=== PATIENT | male | born 1955 | race Caucasian/White ===

== ENCOUNTER 2019-01-10 11:49 | Observation (INO) | payer MEDICARE ==
[~2019-01-10] VITALS: Ht 180.3 cm; Wt 111.0 kg
[~2019-01-10 11:49] MED LIST: ATOR20 PO; CLOP75 PO; FENO160 PO; FENO48 PO; Flomax0.4 MG PO; GLIP10 PO; INSDET100 SC; INSULANPEN; LIRA0.6P SC; LISINOPRIL (ZESTRIL) PO; LO-DOSE ASPIRIN81 MG PO; METF500 PO; Norco 5-325 Ta1 EACH PO; OXYACE5T PO; TAMS.4ER PO
[2019-01-10 12:34] LABS: BASOPHILS PERCENT AUTO 1 % (0-2); EOSINOPHILS ABSOLUTE AUTO 0.88 K/mm3 (0.00-0.68); EOSINOPHILS PERCENT AUTO 11 % (0-6); Hematocrit 44.6 % (37.0-53.0); Hemoglobin 14.1 g/dL (13.5-17.5); IMMATURE GRAN ABSOLUTE AUTO 0.02 K/mm3 (0.00-0.10); IMMATURE GRAN PERCENT AUTO 0 % (0-1); LYMPHOCYTES ABSOLUTE AUTO 2.36 K/mm3 (0.84-5.20); LYMPHOCYTES PERCENT AUTO 30 % (21-46); MONOCYTES ABSOLUTE AUTO 0.65 K/mm3 (0.16-1.47); MONOCYTES PERCENT AUTO 8 % (4-13); Mean Corpuscular HGB 28.8 pg (26.0-34.0); Mean Corpuscular HGB Conc 31.6 g/dL (31.5-36.5); Mean Corpuscular Volume 91 fL (80-100); NEUTROPHILS PERCENT AUTO 49 % (41-73); Platelet Count 239 K/mm3 (150-400); RDW Coefficient Variation 13.3 % (11.7-14.2); RDW Standard Deviation 44.8 fL (35.1-46.3); White Blood Cell Count 7.91 K/mm3 (4.00-11.30)
[2019-01-10 13:06] LABS: Alanine Aminotransfer (ALT/SGP 27 U/L (12-78); Albumin, Blood 4.1 g/dL (3.4-5.0); Albumin/Globulin Ratio 1.1 (0.8-1.8); Alk Phos 32 U/L (50-136); Anion Gap 6 mmol/L (6-16); Aspartate Aminotrans (AST/SGOT 18 U/L (12-37); Bilirubin, Total 0.8 mg/dL (0.1-1.0); Blood Urea Nitrogen 19 mg/dL (8-24); Bun/Creatinine Ratio 18.3 (12.0-20.0); CO2, Blood 25 mmol/L (21-32); Calcium, Blood 9.4 mg/dL (8.5-10.1); Chloride, Blood 110 mmol/L (98-108); Creatinine, Blood 1.04 mg/dL (0.60-1.20); Globulin, Blood 3.9 g/dL (2.2-4.0); Glomerular Filtration Rate >60 (60-); Glucose, Blood 85 mg/dL (70-99); Potassium, Blood 4.3 mmol/L (3.5-5.5); Sodium, Blood 141 mmol/L (136-145); Troponin I <0.015 ng/mL (0.000-0.040)
[2019-01-10] MEDS ORDERED: LOSA25 PO (15:49)
[2019-01-10] MEDS ORDERED: TAMS.4ER PO (15:50)
[2019-01-10] MEDS ORDERED: THERA1 EACH PO (15:50)
[2019-01-10] MEDS ORDERED: INVOKANA300 MG PO (15:50)
[2019-01-10] MEDS ORDERED: Vitamin D2000 UNIT PO (15:51)
[2019-01-10] MEDS ORDERED: UBID10 (15:51)
--- NOTE | 2019-01-10 21:58 | NUR ---
Assumed care of pt at approx 1900, pt transported from ED to PCU 10 via [facility] with ED RN at bedside. VSS. Pt in no apparent sign of distress. Pt denies chest pain, pressure, nor SOB. Pt able to transfer self from gurney to bed. Pt ambulated to bathroom to void without assistance. Steady gait. Pt denies fatigue, MEDINA, nor changes from baseline with ambulation. No marked changes on tele with ambulation. Pt educated on fall prevention, instructed to call this RN before getting out of bed. Pt verbally agreed and has been using call light appropriately. Non-skid sock in place. See admission assessment for detailed assessment. Pt has been NPO since 1999. Will continue to monitor.
[2019-01-11 05:32] LABS: CHOL/HDL RATIO 3.3; Cholesterol 107 mg/dL (50-200); HDL Cholesterol 32 mg/dL (>39); LDL/HDL RATIO 1.8; Low Density Lipoprotein Chol 56 mg/dL (0-110); Triglycerides 93 mg/dL (30-160); Troponin I <0.015 ng/mL (0.000-0.040); Very Low Density Lipoprot Chol 18 mg/dL (6-32)
--- NOTE | 2019-01-11 06:13 | NUR ---
Shift Summary Pt with uneventful night. Slept on and off throughout the shift, VSS, no apparent sign of distress. Pt denies chest pain or pressure. Pt denies SOB. Pt denies any breathing or cardiac changes with ambulation. pt ind in room, uses urinal at bedside. No events on tele, pt presents with asymptomatic bradycardia. Pt remains alert and oriented, no changes from initial shift assessment. Call light in reach, uses call light appropriately. Pt has been NPO since 1999 for cardiac risk panal and possible angio today. Cardiology consulted. Will continue to monitor.
--- NOTE | 2019-01-11 11:07 | NUR ---
PT OFF FLOOR TO [facility]
--- NOTE | 2019-01-11 13:08 | NUR ---
PT IS RESTING COMFORTABLY VITAL SIGNS STABLE CHARTED. DENIES ANY PAIN OR DISCOMFORT. SITTING WITH HOB AT 45 DEGREES. WILL CONTINUE TO MONITOR THIS PATIENT CLOSELY.
--- NOTE | 2019-01-11 17:28 | NUR ---
END OF SHIFT; NO DC ORDERS RECEIVED FROM PRIOR TO 5 PM. THIS RN CALLS HANG ZAPATA TO SEE IF HE WILL WRITE ORDERS. NO ANSWER, HAS SIGNED OFF AND VERBAL ORDERS NO NEW MEDICATIONS FROM CARDIOLOGY AND SEE HER FIRST WEEK IN JANUARY. PT FRUSTRATED AND WANTING TO GO HOME. WILL CONTINUE TO TRY AND CALL JONA MAURICIO. TR BAND IS DEFLATED AND NO BLEEDING NOTED. NO HEMATOMA. PER PLATING TANK OPERATOR NO INTERVENTIONS. PT WAS HEPARINIZED BECAUSE IFR WAS DONE. PT REMAINS ON 75ML NS AN HOUR PER ORDER. WILL CONTINUE TO MONITOR.
== END 2019-01-11 18:43 | disposition home or self-care (01) ==
LOC: ER 11:49 → PCU 11:50
PROVIDERS: Emergency Medicine; ADMIT Internal Medicine
DX: I25.110 Atherosclerotic heart disease of native coronary artery with unstable angina pectoris (principal); I12.9 Hypertensive chronic kidney disease with stage 1 through stage 4 chronic kidney disease, or unspecified chronic kidney disease; E11.22 Type 2 diabetes mellitus with diabetic chronic kidney disease; N18.9 Chronic kidney disease, unspecified; I71.4 Abdominal aortic aneurysm, without rupture; I25.2 Old myocardial infarction; G47.33 Obstructive sleep apnea (adult) (pediatric); E78.5 Hyperlipidemia, unspecified; M54.5 Low back pain; G89.29 Other chronic pain; E66.9 Obesity, unspecified; Z95.1 Presence of aortocoronary bypass graft; Z99.89 Dependence on other enabling machines and devices; Z87.442 Personal history of urinary calculi; Z88.8 Allergy status to other drugs, medicaments and biological substances; Z79.899 Other long term (current) drug therapy; Z79.82 Long term (current) use of aspirin; Z79.01 Long term (current) use of anticoagulants
CPT/HCPCS: 36415; 71046; 80053; 80061; 82947; 84484; 85025; 93005; 93010; 93308; 93321; 93454; 93571; 93572; 94762; 96372; 99152; 99153; 99285-25; C1769; C1887; C1894; G0378; J1644; J1650; J2250; J3010; J7030; Q9967

== ENCOUNTER 2019-06-16 16:02 | Inpatient (IN) | payer MEDICARE ==
[~2019-06-16] VITALS: Ht 180.3 cm; Wt 115.4 kg
[~2019-06-16 16:02] MED LIST changes: +ATOR10 PO; -ATOR20 PO; +CO Q-10 PO; +INVOKANA300 MG PO; +LOSA25 PO; +THERA1 EACH PO; +Vitamin D2000 UNIT PO
[2019-06-16 16:40] LABS: BASOPHILS ABSOLUTE AUTO 0.05 K/mm3 (0.00-0.23); BASOPHILS PERCENT AUTO 0 % (0-2); EOSINOPHILS ABSOLUTE AUTO 0.01 K/mm3 (0.00-0.68); EOSINOPHILS PERCENT AUTO 0 % (0-6); Hematocrit 47.8 % (37.0-53.0); Hemoglobin 15.6 g/dL (13.5-17.5); IMMATURE GRAN ABSOLUTE AUTO 0.05 K/mm3 (0.00-0.10); IMMATURE GRAN PERCENT AUTO 0 % (0-1); LYMPHOCYTES ABSOLUTE AUTO 1.11 K/mm3 (0.84-5.20); LYMPHOCYTES PERCENT AUTO 9 % (21-46); MONOCYTES ABSOLUTE AUTO 0.38 K/mm3 (0.16-1.47); MONOCYTES PERCENT AUTO 3 % (4-13); Mean Corpuscular HGB 29.1 pg (26.0-34.0); Mean Corpuscular HGB Conc 32.6 g/dL (31.5-36.5); Mean Corpuscular Volume 89 fL (80-100); NEUTROPHILS ABSOLUTE AUTO 10.39 K/mm3 (1.96-9.15); NEUTROPHILS PERCENT AUTO 87 % (41-73); Platelet Count 247 K/mm3 (150-400); RDW Coefficient Variation 13.2 % (11.7-14.2); RDW Standard Deviation 43.1 fL (35.1-46.3); Red Blood Cell Count 5.37 M/mm3 (4.30-5.90); White Blood Cell Count 11.99 K/mm3 (4.00-11.30)
[2019-06-16 17:02] LABS: Alanine Aminotransfer (ALT/SGP 25 U/L (12-78); Albumin, Blood 4.3 g/dL (3.4-5.0); Albumin/Globulin Ratio 1.1 (0.8-1.8); Alk Phos 34 U/L (50-136); Anion Gap 11 mmol/L (6-16); Aspartate Aminotrans (AST/SGOT 17 U/L (12-37); Bilirubin, Total 0.9 mg/dL (0.1-1.0); Blood Urea Nitrogen 23 mg/dL (8-24); Bun/Creatinine Ratio 21.5 (12.0-20.0); CO2, Blood 23 mmol/L (21-32); Calcium, Blood 9.6 mg/dL (8.5-10.1); Chloride, Blood 108 mmol/L (98-108); Creatinine, Blood 1.07 mg/dL (0.60-1.20); Glomerular Filtration Rate >60 (60-); Glucose, Blood 133 mg/dL (70-99); Sodium, Blood 142 mmol/L (136-145); Total Protein, Blood 8.3 g/dL (6.4-8.2); Troponin I <0.015 ng/mL (0.000-0.040)
[2019-06-16 18:10] LABS: Source, Urine Clean Catch
[2019-06-16 18:20] LABS: Bilirubin, Urine Neg (Neg); Blood, Urine 1+ (Neg); Glucose Qualitative, Urine 4+ (Neg); Ketones, Urine 2+ (Neg); Leukocyte Esterase, Urine Neg (Neg); Nitrite, Urine Neg (Neg); Protein, Urine 1+ (Neg); Specific Gravity, Urine 1.015 (1.003-1.022); Urobilinogen, Urine NORM (Normal)
[2019-06-16 18:34] LABS: Base Excess Venous -2.3 mmol/L; PCO2 Venous 35.6 mmHg (38-42); PO2 Venous 192 mmHg (38-42); pH Blood Venous 7.41 (7.34-7.37)
[2019-06-16 18:40] LABS: Appearance, Urine Clear (Clear); Color, Urine Yellow (P-Yellow)
[2019-06-16 18:42] LABS: Bacteria Few /hpf; Red Blood Cells, Urine 0-2 /hpf (0-2); Squamous Epithelial Cells Rare /hpf (Few); White Blood Cells, Urine 0-2 /hpf (0-5)
[2019-06-17 05:11] LABS: Hematocrit 43.3 % (37.0-53.0); Hemoglobin 13.9 g/dL (13.5-17.5); Mean Corpuscular HGB 29.1 pg (26.0-34.0); Mean Corpuscular HGB Conc 32.1 g/dL (31.5-36.5); Mean Corpuscular Volume 91 fL (80-100); Mean Platelet Volume 11.3 fL (9.1-12.4); Platelet Count 206 K/mm3 (150-400); RDW Coefficient Variation 13.3 % (11.7-14.2); RDW Standard Deviation 44.2 fL (35.1-46.3); Red Blood Cell Count 4.77 M/mm3 (4.30-5.90); White Blood Cell Count 14.71 K/mm3 (4.00-11.30)
[2019-06-17 05:40] LABS: Alanine Aminotransfer (ALT/SGP 19 U/L (12-78); Albumin, Blood 3.6 g/dL (3.4-5.0); Albumin/Globulin Ratio 1.1 (0.8-1.8); Alk Phos 28 U/L (50-136); Anion Gap 8 mmol/L (6-16); Aspartate Aminotrans (AST/SGOT 14 U/L (12-37); Bilirubin, Total 0.9 mg/dL (0.1-1.0); Blood Urea Nitrogen 20 mg/dL (8-24); CHOL/HDL RATIO 3.2; CO2, Blood 26 mmol/L (21-32); Calcium, Blood 8.7 mg/dL (8.5-10.1); Chloride, Blood 110 mmol/L (98-108); Cholesterol 117 mg/dL (50-200); Creatinine, Blood 1.05 mg/dL (0.60-1.20); Globulin, Blood 3.4 g/dL (2.2-4.0); Glomerular Filtration Rate >60 (60-); Glucose, Blood 111 mg/dL (70-99); HDL Cholesterol 36 mg/dL (>39); LDL/HDL RATIO 1.8; Low Density Lipoprotein Chol 66 mg/dL (0-110); Magnesium, Blood 1.6 mg/dL (1.6-2.4); Potassium, Blood 4.1 mmol/L (3.5-5.5); Sodium, Blood 144 mmol/L (136-145); Triglycerides 73 mg/dL (30-160); Very Low Density Lipoprot Chol 14 mg/dL (6-32)
--- NOTE | 2019-06-17 07:53 | NUR ---
STRIP TANK TENDER SUMMARY Very painful upon waking throughout the night. zofran given twice in addition to q4 hour doses of morphine. abdomen tender to light palpation, no distention noted. OOB to bathroom with minimal standby for IV pole and oxygen. Patient stated he was scheduled for a left knee replacement next Thursday in [place].
--- NOTE | 2019-06-17 16:09 | NUR ---
SHIFT SUMMARY NO ACUTE CHANGES. PATIENT MEDICATED X3 FOR PAIN THIS SHIFT. DENIES SHORTNESS OF BREATH AND NAUSEA. PATIENT UP SBA FOR LINE MANAGEMENT. PATIENT HAD MRI OF ABDOMEN TODAY. PATIENT REMAINS NPO. AT BEDSIDE. CALL LIGHT IN REACH.
--- NOTE | 2019-06-18 00:58 | NUR ---
BEGINNING SHIFT SUMMARY ASSUMED CARE OF PT AT 1900. PT LYING IN BED WATCHING TV. PT IS ALERT AND ORIENTED, CALLS APPROPIATLY. PT REPORTS HAVING PAIN IN HIS ABDOMEN AND REQUESTED PAIN MEDICATION SOON HE COULD HAVE IT. HEART SOUNDS REGULAR, PERIPHERAL PULSES STRONG, IV IN R AC INFUSING D5W1/2NS KCL 20MEQ @ 100ML/HR. LUNG SOUNDS CLEAR, DENIES SOB, PT HAS NASAL CANNULA IN NOSE BUT NO O2 ON, WHEN PT NOTIFIED PT SAID HE WAS ON 4 LITERS AND STILL WATED IT ON, PT IS NOW ON 2 L PER REQUEST. CALL LIGHT IN REACH, BED IN LOWEST POSTION, WILL CONTINUE TO MONITOR.
[2019-06-18 05:06] LABS: BASOPHILS ABSOLUTE AUTO 0.06 K/mm3 (0.00-0.23); BASOPHILS PERCENT AUTO 0 % (0-2); EOSINOPHILS ABSOLUTE AUTO 0.07 K/mm3 (0.00-0.68); EOSINOPHILS PERCENT AUTO 0 % (0-6); Hematocrit 42.3 % (37.0-53.0); Hemoglobin 13.3 g/dL (13.5-17.5); IMMATURE GRAN PERCENT AUTO 1 % (0-1); LYMPHOCYTES PERCENT AUTO 9 % (21-46); MONOCYTES ABSOLUTE AUTO 1.44 K/mm3 (0.16-1.47); MONOCYTES PERCENT AUTO 9 % (4-13); Mean Corpuscular HGB 29.3 pg (26.0-34.0); Mean Corpuscular HGB Conc 31.4 g/dL (31.5-36.5); Mean Corpuscular Volume 93 fL (80-100); Mean Platelet Volume 11.2 fL (9.1-12.4); NEUTROPHILS ABSOLUTE AUTO 12.64 K/mm3 (1.96-9.15); NEUTROPHILS PERCENT AUTO 81 % (41-73); Platelet Count 184 K/mm3 (150-400); RDW Coefficient Variation 13.7 % (11.7-14.2); RDW Standard Deviation 46.5 fL (35.1-46.3); Red Blood Cell Count 4.54 M/mm3 (4.30-5.90); White Blood Cell Count 15.71 K/mm3 (4.00-11.30)
[2019-06-18 05:39] LABS: Alanine Aminotransfer (ALT/SGP 18 U/L (12-78); Albumin, Blood 3.2 g/dL (3.4-5.0); Albumin/Globulin Ratio 0.8 (0.8-1.8); Alk Phos 28 U/L (50-136); Anion Gap 6 mmol/L (6-16); Aspartate Aminotrans (AST/SGOT 14 U/L (12-37); Blood Urea Nitrogen 18 mg/dL (8-24); Bun/Creatinine Ratio 19.2 (12.0-20.0); CHOL/HDL RATIO 2.5; CO2, Blood 27 mmol/L (21-32); Calcium, Blood 8.8 mg/dL (8.5-10.1); Chloride, Blood 110 mmol/L (98-108); Cholesterol 94 mg/dL (50-200); Creatinine, Blood 0.94 mg/dL (0.60-1.20); Globulin, Blood 3.8 g/dL (2.2-4.0); Glomerular Filtration Rate >60 (60-); Glucose, Blood 135 mg/dL (70-99); HDL Cholesterol 37 mg/dL (>39); LDL/HDL RATIO 1.1; Low Density Lipoprotein Chol 40 mg/dL (0-110); Potassium, Blood 4.3 mmol/L (3.5-5.5); Sodium, Blood 143 mmol/L (136-145); Triglycerides 83 mg/dL (30-160); Very Low Density Lipoprot Chol 16 mg/dL (6-32)
--- NOTE | 2019-06-18 05:45 | NUR ---
END SHIFT SUMMARY NO ACUTE CHANGES NOTED THROUGHOUT THE SHIFT. PT ASKED FOR PAIN MEDICATIONS EVERY 4 HRS TILL 0200, THEN THE PT SLEPT THE REST OF THE SHIFT. PT IS STILL ON 2 LITERS PER REQUEST. PT WALKED TO THE BATHROOM SEVERAL TIMES DURING THE NIGHT. CALL LIGHT IN REACH, BED IN LOWEST POSITION, WILL CONTINUE TO MONITOR UNTIL DAYSHIFT NURSE ARRIVES.
--- NOTE | 2019-06-18 16:32 | NUR ---
SHIFT SUMMARY PT ADMITTED FOR PANCREATITIS, UNKNOWN ORIGIN. DR TEJEDA IN TO SEE PT THIS AM. GI CONSULT ORDERED, BUT GASTRO UNAVAILABLE UNTIL NEXT , DR TEJEDA INFORMED. IVF'S INFUSING, NEW ORDERS FOR IV ABX; INFUSED PER EMAR. PT HAS BEEN SLEEPING OFF AND ON ALL SHIFT. GETS UP TO CHAIR INDEPENDENTLY AND BACK TO BED. NPO EXCEPT FOR MEDS AND ICE. HAS CALLED FOR PAIN MEDICATIONS OCCASSIONALLY THRU OUT THE SHIFT; PT IS USUALLY ASLEEP WHEN CHECKED ON. DOES NOT APPEAR TO BE IN PAIN WHEN CALLING. IN TO SEE PT THIS AM. NO FURTHER CHANGES TO PRESENT. CALL LT IN REACH.
--- NOTE | 2019-06-18 23:04 | NUR ---
BEGINNING SHIFT SUMMARY ASSUMED CARE OF PT AT 1900. PT WAS LYING IN BED WITH SPOUSE AT HIS SIDE WATCHING TV. PT IS ALERT AND ORIENTED. PT C/O EPIGASTRIC PAIN, MEDICATED PER EMAR. PT C/O NOT BEING ABLE TO SLEEP, CALLED HOSPITALIST WHO ORDERED ONE TIME DOSE OF MELETONIN. HEART SOUNDS REGULAR, PERIPHERAL PULSES STRONG, IV IN R AC, INFUSING NS WITH KCL @ 100ML/HR. LUNG SOUNDS CLEAR, DENIES SOB/DYSPNEA. BOWEL TONES HYPOACTIVE, ABDOMEN TENDER IN THE MIDEPIGASTRIC AREA, MILDLY DISTENDED, DENIES NEASEA, STIL NPO STATUS EXCEPT ICE CHIPS. PT IS CURRENTLY SLEEPING. CALL LIGHT IN REACH, BED IN LOWEST POSITION, WILL CONTINUE TO MONITOR.
--- NOTE | 2019-06-18 23:58 | NUR ---
HOSPITALIST DR BETANCOURT ORDERED MELATONIN 3 MG X ONE FOR INSOMNIA. AND CHANGED IV DILAUDID 1-2 MG IV Q4 PRN TO IV 0.5 MG Q4 PRN.
--- NOTE | 2019-06-19 05:24 | NUR ---
END SHIFT SUMMARY NO AUTE CHANGES NOTED THROUGHOUT THE NIGHT. PT ASKED FOR PAIN MEDICATION 3X THROUGHOUT THE SHIFT, C/O PAIN IN HIS EPIGASTRIC REGION. PT STATES THAT HE IS FEELING BETTER TONIGHT. PT WAS ABLE TO SLEEP MOST OF THE NIGHT. ABX RUNNING IN IV NOW. CALL LIGHT IN REACH, BED IN LOWEST POSITION, WILL CONTINUE TO MONITOR UNTIL DAYSHIFT NURSE ARRIVES.
[2019-06-19 05:42] LABS: BASOPHILS ABSOLUTE AUTO 0.04 K/mm3 (0.00-0.23); BASOPHILS PERCENT AUTO 0 % (0-2); EOSINOPHILS PERCENT AUTO 1 % (0-6); Hematocrit 39.5 % (37.0-53.0); Hemoglobin 12.7 g/dL (13.5-17.5); IMMATURE GRAN PERCENT AUTO 1 % (0-1); LYMPHOCYTES PERCENT AUTO 9 % (21-46); MONOCYTES ABSOLUTE AUTO 1.45 K/mm3 (0.16-1.47); MONOCYTES PERCENT AUTO 11 % (4-13); Mean Corpuscular HGB 29.6 pg (26.0-34.0); Mean Corpuscular HGB Conc 32.2 g/dL (31.5-36.5); Mean Corpuscular Volume 92 fL (80-100); NEUTROPHILS ABSOLUTE AUTO 10.87 K/mm3 (1.96-9.15); NEUTROPHILS PERCENT AUTO 79 % (41-73); Platelet Count 177 K/mm3 (150-400); RDW Coefficient Variation 13.6 % (11.7-14.2); RDW Standard Deviation 45.9 fL (35.1-46.3); Red Blood Cell Count 4.29 M/mm3 (4.30-5.90); White Blood Cell Count 13.76 K/mm3 (4.00-11.30)
[2019-06-19 05:58] LABS: Alanine Aminotransfer (ALT/SGP 16 U/L (12-78); Albumin, Blood 2.9 g/dL (3.4-5.0); Albumin/Globulin Ratio 0.7 (0.8-1.8); Alk Phos 43 U/L (50-136); Anion Gap 8 mmol/L (6-16); Aspartate Aminotrans (AST/SGOT 12 U/L (12-37); Blood Urea Nitrogen 16 mg/dL (8-24); Bun/Creatinine Ratio 20.4 (12.0-20.0); CO2, Blood 24 mmol/L (21-32); Calcium, Blood 8.9 mg/dL (8.5-10.1); Chloride, Blood 110 mmol/L (98-108); Creatinine, Blood 0.78 mg/dL (0.60-1.20); Globulin, Blood 3.9 g/dL (2.2-4.0); Glomerular Filtration Rate >60 (60-); Glucose, Blood 123 mg/dL (70-99); Potassium, Blood 4.1 mmol/L (3.5-5.5); Sodium, Blood 142 mmol/L (136-145); Total Protein, Blood 6.8 g/dL (6.4-8.2)
--- NOTE | 2019-06-19 13:30 | NUR ---
SHIFT SUMMARY NO ACUTE CHANGES TO PRESENT THIS SHIFT. PT APPEARS TO BE A LITTLE BETTER TODAY. UP MORE INDEPENDENTLY TO BTHRM, MOVING AROUND BETTER. REQUESTED SHOWER; SON ASSISTED PT IN SHOWER FOR SAFETY, PT REPORTED SOME NAUSEA WHEN GETTING READY. MEDICATED FOR NAUSEA PRIOR TO SHOWER. PT REPORTED FEELING MUCH BETTER WHEN FINISHED. REPORTED THAT ABD PAIN BETTER TODAY. SLEPT WELL LAST NIGHT AND MOST OF DAY TODAY, APART FROM HAVING VISITORS. RESTING QUIETLY AT THIS TIME. CALL LT IN REACH, ABLE TO MAKE NEEDS KNOWN.
--- NOTE | 2019-06-19 16:11 | NUR ---
PT'S SON BROUGHT IN HOME BIPAP AND HAD IT SET UP WHEN PT GOT OUT OF SHOWER. STATED TO SON THAT I WOULD GET AN ORDER FOR PT TO USE. SON REPORTED THAT WE DID NOT NEED AN ORDER IT WAS PT'S HOME UNIT. ATTEMPTED TO EDU PT'S SON, WHO IS A TRAVELING RN AT ANOTHER [place] FACILITY, THAT WE DO NEED AN ORDER AND THAT THERE ARE PROTOCOLS WE HAVE TO FOLLOW. DR TEJEDA DOWN THE CRAFT AT THAT TIME, AND AN ORDER OBTAINED AND PLACED. RT TO RM LATER TO K ON PT.
--- NOTE | 2019-06-19 23:44 | NUR ---
2000 RESTING COMFORTABLY IN BED, DENIES PAIN OR NAUSEA.
--- NOTE | 2019-06-20 04:15 | NUR ---
SHIFT SUMMARY: 64 Y/O MALE RESTED COMFORTABLY ALL SHIFT, C/O ABD PAIN RATED 6/10 WITH DILAUDID 0.5MG IVP X 1 GIVEN THREE DIFFERENT OCCASIONS WITH RELIEF FELT, DENIES NAUSEA, HAPPY AND COOPERATIVE, UP BATHROOM PER SELF WITH GAIT SLOW AND STEADY, BED LOW POSITION WITH CALL LIGHT AT SIDE.
[2019-06-20 08:16] LABS: BASOPHILS ABSOLUTE AUTO 0.05 K/mm3 (0.00-0.23); BASOPHILS PERCENT AUTO 0 % (0-2); EOSINOPHILS ABSOLUTE AUTO 0.26 K/mm3 (0.00-0.68); EOSINOPHILS PERCENT AUTO 2 % (0-6); Hematocrit 38.1 % (37.0-53.0); Hemoglobin 12.3 g/dL (13.5-17.5); IMMATURE GRAN ABSOLUTE AUTO 0.07 K/mm3 (0.00-0.10); IMMATURE GRAN PERCENT AUTO 1 % (0-1); LYMPHOCYTES ABSOLUTE AUTO 1.63 K/mm3 (0.84-5.20); LYMPHOCYTES PERCENT AUTO 13 % (21-46); MONOCYTES ABSOLUTE AUTO 1.42 K/mm3 (0.16-1.47); MONOCYTES PERCENT AUTO 11 % (4-13); Mean Corpuscular HGB 29.1 pg (26.0-34.0); Mean Corpuscular HGB Conc 32.3 g/dL (31.5-36.5); Mean Corpuscular Volume 90 fL (80-100); Mean Platelet Volume 10.5 fL (9.1-12.4); NEUTROPHILS ABSOLUTE AUTO 9.03 K/mm3 (1.96-9.15); NEUTROPHILS PERCENT AUTO 72 % (41-73); Platelet Count 190 K/mm3 (150-400); RDW Coefficient Variation 13.4 % (11.7-14.2); RDW Standard Deviation 44.2 fL (35.1-46.3); Red Blood Cell Count 4.22 M/mm3 (4.30-5.90); White Blood Cell Count 12.46 K/mm3 (4.00-11.30)
[2019-06-20 08:41] LABS: Alanine Aminotransfer (ALT/SGP 13 U/L (12-78); Albumin, Blood 2.7 g/dL (3.4-5.0); Albumin/Globulin Ratio 0.6 (0.8-1.8); Alk Phos 33 U/L (50-136); Anion Gap 6 mmol/L (6-16); Aspartate Aminotrans (AST/SGOT 13 U/L (12-37); Bilirubin, Total 0.7 mg/dL (0.1-1.0); Blood Urea Nitrogen 22 mg/dL (8-24); Bun/Creatinine Ratio 25.4 (12.0-20.0); CO2, Blood 27 mmol/L (21-32); Calcium, Blood 9.3 mg/dL (8.5-10.1); Chloride, Blood 109 mmol/L (98-108); Creatinine, Blood 0.87 mg/dL (0.60-1.20); Globulin, Blood 4.3 g/dL (2.2-4.0); Glomerular Filtration Rate >60 (60-); Glucose, Blood 128 mg/dL (70-99); Potassium, Blood 4.2 mmol/L (3.5-5.5); Sodium, Blood 142 mmol/L (136-145)
--- NOTE | 2019-06-20 15:39 | NUR ---
SHIFT SUMMARY: PT HAS BEEN A/O X 4 TODAY WITH C/O TENTERNESS TO ABDOMEN ON PALPATION WHIC IS CONSISTENT WITH HIS CURRENT DX. PAIN MEDS WERE GIVEN ORDERED AND WERE REPORTED TO BE EFFECTIVE. IV FLUIDS/ABO HAVE BEEN INFUSING ORDERED. THE PROCEDURE NURSE WAS SUCCESSFUL IN STARTING A NEW IV WHICH IS PATENT. DR TEJEDA ADVANCED PT TO CLEAR LIQUIDS WHICH HE IS TOLERATING WELL SO FAR. PT USES URINAL AT THE BEDSIDE FOR TOILETING. CBGS HAVE BEEN COVERED WITH INSULIN ORDERED. PT WAS UP TO THE CHAIR FOR BREAKFAST AND IS NOW BACK IN BED RESTING. HE HAS HAD MULTIPLE VISITORS THROUGHOUT THE DAY. PT IS ABLE TO MAKE HIS NEEDS KNOWN AND CALLS WITH CALL LIGHT WHEN NEEDED.
--- NOTE | 2019-06-20 23:15 | NUR ---
PT GIVEN COMPAZINE IV PER PT REQUEST FOR NAGGING NAUSEA. IV BEGAN TO LEAK DURING IV FLUSH W/NS BUT MED WAS RECIEVED FOR GOOD EFFECT. NEW 20G IV PLACED TO PT'S JUAN DANIEL AND ÁLVARO. OLD IV TO ELIOT WAS DC'D.
--- NOTE | 2019-06-21 01:21 | NUR ---
CALLED GI CX TO ANSWERING SERVICE ON 06/21/19 AT 0118.
--- NOTE | 2019-06-21 01:22 | NUR ---
PT AMBULATED HALLS APPROXIMATELY 400FT. HE RETURNED TO BED AND DENIED COMPLAINTS.
--- NOTE | 2019-06-21 05:24 | NUR ---
SUMMARY: A/OX4, INDEPENDENT IN ROOM AND SPECIFIES NEEDS. PT TOLERATED CL DIET OK BUT ADMITTED THAT BEEF BROTH DIDN'T SETTLE WELL. HE'S RECIEVED IV COMPAZINE AND IV DILAUDID X1 SINCE FOR CONTROL OF MILD NAGGING NAUSEA AND ABDO PAIN. NEW 20G IV WAS PLACED D/T PREVIOUS ONE LEAKING AND WAS DC'D. IV ABX RECIEVED THEN SL. Q6H CBG'S ARE STABLE AND MAY BE CHECKED LESS FREQUENTLY SINCE PT NO LONGER NPO, WILL DISCUSS W/DAY RN. GI CX CALLED TO ANS SERVICE. PT TOLERATES CPAP AT HS AND CONT BIOX INTACT. NO ACUTE CHANGES, VSS AND AFEBRILE. WCTM AND REPORT TO DAY RN.
[2019-06-21 08:29] LABS: BASOPHILS ABSOLUTE AUTO 0.06 K/mm3 (0.00-0.23); BASOPHILS PERCENT AUTO 1 % (0-2); EOSINOPHILS ABSOLUTE AUTO 0.33 K/mm3 (0.00-0.68); EOSINOPHILS PERCENT AUTO 3 % (0-6); Hematocrit 39.5 % (37.0-53.0); Hemoglobin 12.6 g/dL (13.5-17.5); IMMATURE GRAN ABSOLUTE AUTO 0.05 K/mm3 (0.00-0.10); IMMATURE GRAN PERCENT AUTO 0 % (0-1); LYMPHOCYTES ABSOLUTE AUTO 1.38 K/mm3 (0.84-5.20); LYMPHOCYTES PERCENT AUTO 11 % (21-46); MONOCYTES ABSOLUTE AUTO 1.48 K/mm3 (0.16-1.47); MONOCYTES PERCENT AUTO 12 % (4-13); Mean Corpuscular HGB 28.8 pg (26.0-34.0); Mean Corpuscular HGB Conc 31.9 g/dL (31.5-36.5); Mean Corpuscular Volume 90 fL (80-100); Mean Platelet Volume 10.9 fL (9.1-12.4); NEUTROPHILS ABSOLUTE AUTO 9.33 K/mm3 (1.96-9.15); NEUTROPHILS PERCENT AUTO 74 % (41-73); Platelet Count 203 K/mm3 (150-400); RDW Coefficient Variation 13.4 % (11.7-14.2); RDW Standard Deviation 44.3 fL (35.1-46.3); Red Blood Cell Count 4.38 M/mm3 (4.30-5.90); White Blood Cell Count 12.63 K/mm3 (4.00-11.30)
[2019-06-21 09:00] LABS: Alanine Aminotransfer (ALT/SGP 13 U/L (12-78); Albumin, Blood 2.8 g/dL (3.4-5.0); Albumin/Globulin Ratio 0.7 (0.8-1.8); Alk Phos 38 U/L (50-136); Anion Gap 6 mmol/L (6-16); Aspartate Aminotrans (AST/SGOT 7 U/L (12-37); Bilirubin, Total 0.9 mg/dL (0.1-1.0); Blood Urea Nitrogen 20 mg/dL (8-24); Bun/Creatinine Ratio 21.9 (12.0-20.0); CO2, Blood 27 mmol/L (21-32); Calcium, Blood 9.3 mg/dL (8.5-10.1); Chloride, Blood 107 mmol/L (98-108); Creatinine, Blood 0.92 mg/dL (0.60-1.20); Globulin, Blood 4.1 g/dL (2.2-4.0); Glomerular Filtration Rate >60 (60-); Glucose, Blood 118 mg/dL (70-99); Potassium, Blood 3.6 mmol/L (3.5-5.5); Sodium, Blood 140 mmol/L (136-145); Total Protein, Blood 6.9 g/dL (6.4-8.2)
--- NOTE | 2019-06-21 15:49 | NUR ---
SHIFT SUMMARY: PT IS A/O X 4 WITH NO C/O PAIN. HE DOES REPORT THAT HE STILL HAS MILD TENDERNESS IN HIS ABDOMEN BUT IT IS MUCH BETTER THAN IT HAS BEEN IN PREVIOUS DAYS. DR TEJEDA ROUNDED ON PT THIS MORNING AND REPORTS THAT HE WILL CONTINUE ON A FLUID DIET AND START ANOTHER BAG OF CLINIMIX WHILE WE AWAIT THE ARRIVAL OF DR BIRMINGHAM FOR THE GI CONSULT. PT IS MUCH STRONGER TODAY AND IS AMBULATING TO THE BATHROOM WELL AROUND THE UNIT FOR SHORT WALKS. PT IS HERE AT THE BEDSIDE AND PT IS ABLE TO MAKE HIS NEEDS KNOWN AND CALLS APPROPRIATELY.
--- NOTE | 2019-06-21 22:09 | NUR ---
HERE CONSULTING W/PT. HE OK'D CLINIMIX BEING DC'D D/T PT TOLERATING CLEAR LIQ DIET W/O ANY PAIN OR NAUSEA DURING ALL MEALS TODAY. HE INSTRUCTED THAT FULL LIQ DIET CAN BE COMMENCED AT BREAKFAST IN AM.
--- NOTE | 2019-06-22 05:42 | NUR ---
SUMMARY: PT A/OX4, CALLS APPROPRIATELY AND INDEPENDENT IN ROOM. HE'S DENIED PAIN/NAUSEA AND HAS TOLERATED CL DIET T/O DAY AND NIGHT SO CLINIMIX WAS DC'D DURING CONSULTATION. HE ALSO RX'D FULL LIQ DIET TO COMMENCE THIS AM. IV ABX RECIEVED THEN SL. PT TOLERATES CPAP AND CONT BIOX AT HS. HE'S REQUIRED NO PRN MEDS THIS SHIFT AND REPORTS FEELING MUCH BETTER ASIDE FROM SLIGHTLY RESTLESS SLEEP FROM BEING TOO HOT THEN COLD T/O NOCTE. PT WAS AFEBRILE W/VSS. AND NO ACUTE CHANGES. WCTM AND REPORT TO DAY RN.
[2019-06-22 07:58] LABS: BASOPHILS ABSOLUTE AUTO 0.05 K/mm3 (0.00-0.23); BASOPHILS PERCENT AUTO 1 % (0-2); EOSINOPHILS ABSOLUTE AUTO 0.32 K/mm3 (0.00-0.68); EOSINOPHILS PERCENT AUTO 3 % (0-6); Hematocrit 40.1 % (37.0-53.0); Hemoglobin 12.9 g/dL (13.5-17.5); IMMATURE GRAN ABSOLUTE AUTO 0.06 K/mm3 (0.00-0.10); IMMATURE GRAN PERCENT AUTO 1 % (0-1); LYMPHOCYTES ABSOLUTE AUTO 1.52 K/mm3 (0.84-5.20); LYMPHOCYTES PERCENT AUTO 14 % (21-46); MONOCYTES ABSOLUTE AUTO 1.27 K/mm3 (0.16-1.47); MONOCYTES PERCENT AUTO 12 % (4-13); Mean Corpuscular HGB 28.8 pg (26.0-34.0); Mean Corpuscular HGB Conc 32.2 g/dL (31.5-36.5); Mean Corpuscular Volume 90 fL (80-100); NEUTROPHILS ABSOLUTE AUTO 7.41 K/mm3 (1.96-9.15); NEUTROPHILS PERCENT AUTO 70 % (41-73); Platelet Count 223 K/mm3 (150-400); RDW Coefficient Variation 13.3 % (11.7-14.2); RDW Standard Deviation 43.7 fL (35.1-46.3); Red Blood Cell Count 4.48 M/mm3 (4.30-5.90); White Blood Cell Count 10.63 K/mm3 (4.00-11.30)
[2019-06-22 08:14] LABS: Alanine Aminotransfer (ALT/SGP 15 U/L (12-78); Albumin, Blood 2.8 g/dL (3.4-5.0); Albumin/Globulin Ratio 0.7 (0.8-1.8); Alk Phos 37 U/L (50-136); Anion Gap 7 mmol/L (6-16); Aspartate Aminotrans (AST/SGOT 11 U/L (12-37); Bilirubin, Total 0.8 mg/dL (0.1-1.0); Blood Urea Nitrogen 19 mg/dL (8-24); Bun/Creatinine Ratio 21.6 (12.0-20.0); CO2, Blood 25 mmol/L (21-32); Calcium, Blood 9.3 mg/dL (8.5-10.1); Chloride, Blood 107 mmol/L (98-108); Creatinine, Blood 0.88 mg/dL (0.60-1.20); Globulin, Blood 4.3 g/dL (2.2-4.0); Glomerular Filtration Rate >60 (60-); Glucose, Blood 113 mg/dL (70-99); Potassium, Blood 3.7 mmol/L (3.5-5.5); Sodium, Blood 139 mmol/L (136-145); Total Protein, Blood 7.1 g/dL (6.4-8.2)
--- NOTE | 2019-06-22 14:25 | NUR ---
PT. DISCHARGED HOME WITH FAMILY , IV STEFAN'D AND ISMA FROM [facility] SETTING UP HIS REFERRELS AND APPPOINTMENTS
== END 2019-06-22 14:21 | disposition home or self-care (01) | DRG 439 ==
LOC: ER 16:02 → MEDS 18:37
PROVIDERS: Family Medicine; Physician Assistant; ADMIT Internal Medicine
DX: K85.00 Idiopathic acute pancreatitis without necrosis or infection (principal); J98.11 Atelectasis; J90 Pleural effusion, not elsewhere classified; K86.9 Disease of pancreas, unspecified; I12.9 Hypertensive chronic kidney disease with stage 1 through stage 4 chronic kidney disease, or unspecified chronic kidney disease; E11.22 Type 2 diabetes mellitus with diabetic chronic kidney disease; N18.9 Chronic kidney disease, unspecified; E86.9 Volume depletion, unspecified; I25.10 Atherosclerotic heart disease of native coronary artery without angina pectoris; I71.2 Thoracic aortic aneurysm, without rupture; E78.5 Hyperlipidemia, unspecified; G47.33 Obstructive sleep apnea (adult) (pediatric); E21.3 Hyperparathyroidism, unspecified; G89.29 Other chronic pain; M54.9 Dorsalgia, unspecified; N40.0 Benign prostatic hyperplasia without lower urinary tract symptoms; I25.2 Old myocardial infarction; Z95.5 Presence of coronary angioplasty implant and graft; Z87.891 Personal history of nicotine dependence; Z79.82 Long term (current) use of aspirin; Z79.4 Long term (current) use of insulin; Z79.899 Other long term (current) drug therapy
CPT/HCPCS: 36415; 71046; 74177; 74181; 80053; 80061; 81001; 82010; 82803; 82947; 83605; 83690; 83735; 84443; 84484; 85025; 85027; 87040; 93005; 93010; 94762; 96361; 96374-59; 96375; 99285-25; C9113; J0780; J1170; J1644; J1815; J1956; J2270; J2405; J7030; J7050; J7120; Q9967

== ENCOUNTER 2021-04-04 00:26 | Inpatient (IN) | payer MEDICARE ==
[~2021-04-04] VITALS: Ht 180.3 cm; Wt 122.5 kg
[~2021-04-04 00:26] MED LIST changes: -INSDET100 SC; +LEVEMIR FL100 UNIT/2 SC
[2021-04-04 00:57] LABS: BASOPHILS PERCENT AUTO 1 % (0-2); EOSINOPHILS ABSOLUTE AUTO 0.77 K/mm3 (0.00-0.68); EOSINOPHILS PERCENT AUTO 7 % (0-6); Hemoglobin 14.2 g/dL (13.5-17.5); Mean Corpuscular HGB 28.7 pg (26.0-34.0); Mean Corpuscular HGB Conc 32.3 g/dL (31.5-36.5); Mean Corpuscular Volume 89 fL (80-100); Platelet Count 252 K/mm3 (150-400); RDW Coefficient Variation 13.3 % (11.7-14.2); RDW Standard Deviation 43.6 fL (35.1-46.3); Red Blood Cell Count 4.95 M/mm3 (4.30-5.90); White Blood Cell Count 11.39 K/mm3 (4.00-11.30)
[2021-04-04 00:58] LABS: IMMATURE GRAN ABSOLUTE AUTO 0.04 K/mm3 (0.00-0.10); IMMATURE GRAN PERCENT AUTO 0 % (0-1); LYMPHOCYTES ABSOLUTE AUTO 4.83 K/mm3 (0.84-5.20); LYMPHOCYTES PERCENT AUTO 42 % (21-46); MONOCYTES ABSOLUTE AUTO 1.29 K/mm3 (0.16-1.47); MONOCYTES PERCENT AUTO 11 % (4-13); NEUTROPHILS ABSOLUTE AUTO 4.36 K/mm3 (1.96-9.15); NEUTROPHILS PERCENT AUTO 38 % (41-73)
[2021-04-04 01:20] LABS: Alanine Aminotransfer (ALT/SGP 32 U/L (12-78); Albumin/Globulin Ratio 1.1 (0.8-1.8); Alk Phos 33 U/L (50-136); Anion Gap 3 mmol/L (6-16); Aspartate Aminotrans (AST/SGOT 18 U/L (12-37); Bilirubin, Total 0.4 mg/dL (0.1-1.0); Blood Urea Nitrogen 24 mg/dL (8-24); Bun/Creatinine Ratio 19.5 (12.0-20.0); CO2, Blood 30 mmol/L (21-32); Calcium, Blood 9.2 mg/dL (8.5-10.1); Chloride, Blood 109 mmol/L (98-108); Creatinine, Blood 1.23 mg/dL (0.60-1.20); Globulin, Blood 3.7 g/dL (2.2-4.0); Glomerular Filtration Rate 58 (60-); Glucose, Blood 145 mg/dL (70-99); Potassium, Blood 3.7 mmol/L (3.5-5.5); Sodium, Blood 142 mmol/L (136-145); Total Protein, Blood 7.7 g/dL (6.4-8.2); Troponin I <0.015 ng/mL (0.000-0.040)
[2021-04-04 04:52] LABS: SARS-Cov-2 (COVID-19) PCR, MMC NEGATIVE (NEGATIVE)
[2021-04-04 05:09] LABS: BASOPHILS ABSOLUTE AUTO 0.08 K/mm3 (0.00-0.23); BASOPHILS PERCENT AUTO 1 % (0-2); EOSINOPHILS ABSOLUTE AUTO 0.23 K/mm3 (0.00-0.68); EOSINOPHILS PERCENT AUTO 2 % (0-6); Hematocrit 44.1 % (37.0-53.0); Hemoglobin 14.1 g/dL (13.5-17.5); IMMATURE GRAN ABSOLUTE AUTO 0.07 K/mm3 (0.00-0.10); IMMATURE GRAN PERCENT AUTO 1 % (0-1); LYMPHOCYTES ABSOLUTE AUTO 1.62 K/mm3 (0.84-5.20); LYMPHOCYTES PERCENT AUTO 12 % (21-46); MONOCYTES ABSOLUTE AUTO 0.79 K/mm3 (0.16-1.47); MONOCYTES PERCENT AUTO 6 % (4-13); Mean Corpuscular HGB 28.6 pg (26.0-34.0); Mean Corpuscular Volume 90 fL (80-100); NEUTROPHILS ABSOLUTE AUTO 11.22 K/mm3 (1.96-9.15); NEUTROPHILS PERCENT AUTO 80 % (41-73); Platelet Count 242 K/mm3 (150-400); RDW Coefficient Variation 13.5 % (11.7-14.2); RDW Standard Deviation 44.1 fL (35.1-46.3); Red Blood Cell Count 4.93 M/mm3 (4.30-5.90); White Blood Cell Count 14.01 K/mm3 (4.00-11.30)
[2021-04-04 05:37] LABS: Alanine Aminotransfer (ALT/SGP 29 U/L (12-78); Albumin, Blood 4.1 g/dL (3.4-5.0); Albumin/Globulin Ratio 1.1 (0.8-1.8); Alk Phos 33 U/L (50-136); Anion Gap 4 mmol/L (6-16); Aspartate Aminotrans (AST/SGOT 15 U/L (12-37); Bilirubin, Total 0.6 mg/dL (0.1-1.0); Blood Urea Nitrogen 24 mg/dL (8-24); Bun/Creatinine Ratio 20.9 (12.0-20.0); CO2, Blood 28 mmol/L (21-32); Calcium, Blood 9.3 mg/dL (8.5-10.1); Chloride, Blood 109 mmol/L (98-108); Creatinine, Blood 1.15 mg/dL (0.60-1.20); Globulin, Blood 3.8 g/dL (2.2-4.0); Glomerular Filtration Rate >60 (60-); Glucose, Blood 206 mg/dL (70-99); Potassium, Blood 4.2 mmol/L (3.5-5.5); Sodium, Blood 141 mmol/L (136-145); Total Protein, Blood 7.9 g/dL (6.4-8.2)
[2021-04-04 07:48] LABS: CHOL/HDL RATIO 4.2; Cholesterol 133 mg/dL (50-200); HDL Cholesterol 32 mg/dL (>39); LDL/HDL RATIO 2.6; Low Density Lipoprotein Chol 84 mg/dL (0-110); Triglycerides 87 mg/dL (30-160); Very Low Density Lipoprot Chol 17 mg/dL (6-32)
[2021-04-04] MEDS ORDERED: FENO160 PO (09:31)
[2021-04-04] MEDS ORDERED: ASPI325 PO (10:18)
[2021-04-04] MEDS ORDERED: JARDIANCE25 MG PO (10:18)
[2021-04-04] MEDS ORDERED: MULVITA PO (10:20)
[2021-04-04] MEDS ORDERED: SILD50TA PO (10:20)
[2021-04-04] MEDS ORDERED: Coq-1030 MG PO (10:21)
--- NOTE | 2021-04-04 17:35 | NUR ---
SHIFT SUMMARY PT IS IN BED RM AIR. SOME NAUSEA AND VOMITING THIS PM. MEDICATED PER SEP Q2 HRS TO CONTROL PAIN AND ALLOW FOR REST. NEW IV IN RIGHT FOREARM WORKS BEST FOR IV MEDS TO PREVENT OCCLUSION ALARM FROM GOING OFF FREQUENTLY. PT WAS ASLEEP WHEN CAME IN TO CONSULT, WAS INFORMED THAT HE WOULD TRY AGAIN TOMORROW AND DISCUSS THE POSSIBILITY OF HAVING HIS GALLBLADDER TAKEN OUT. WILL CONTINUE TO MEDICATER PER SEP AND MONITOR.
--- NOTE | 2021-04-05 04:27 | NUR ---
SHIFT SUMMARY PT ADMITTED FOR PANCREATITIS. C/O ABDOMINAL PAIN THROUGHOUT SHIFT. NAUSEA AND VOMITING NOTED. PT MEDICATED THROUGHOUT SHIFT FOR BOTH,AAOX4. NO DISTRESS NOTED. VS STABLE.
[2021-04-05 04:52] LABS: BASOPHILS ABSOLUTE AUTO 0.03 K/mm3 (0.00-0.23); BASOPHILS PERCENT AUTO 0 % (0-2); EOSINOPHILS ABSOLUTE AUTO 0.09 K/mm3 (0.00-0.68); EOSINOPHILS PERCENT AUTO 1 % (0-6); Hematocrit 40.1 % (37.0-53.0); Hemoglobin 12.9 g/dL (13.5-17.5); IMMATURE GRAN ABSOLUTE AUTO 0.05 K/mm3 (0.00-0.10); IMMATURE GRAN PERCENT AUTO 0 % (0-1); LYMPHOCYTES ABSOLUTE AUTO 1.84 K/mm3 (0.84-5.20); LYMPHOCYTES PERCENT AUTO 14 % (21-46); MONOCYTES ABSOLUTE AUTO 1.16 K/mm3 (0.16-1.47); MONOCYTES PERCENT AUTO 9 % (4-13); Mean Corpuscular HGB 28.4 pg (26.0-34.0); Mean Corpuscular HGB Conc 32.2 g/dL (31.5-36.5); Mean Corpuscular Volume 88 fL (80-100); Mean Platelet Volume 11.2 fL (9.1-12.4); NEUTROPHILS ABSOLUTE AUTO 9.77 K/mm3 (1.96-9.15); NEUTROPHILS PERCENT AUTO 76 % (41-73); Platelet Count 206 K/mm3 (150-400); RDW Coefficient Variation 13.7 % (11.7-14.2); RDW Standard Deviation 43.8 fL (35.1-46.3); Red Blood Cell Count 4.55 M/mm3 (4.30-5.90); White Blood Cell Count 12.94 K/mm3 (4.00-11.30)
[2021-04-05 05:25] LABS: Anion Gap 5 mmol/L (6-16); Blood Urea Nitrogen 19 mg/dL (8-24); Bun/Creatinine Ratio 20.7 (12.0-20.0); CO2, Blood 26 mmol/L (21-32); Calcium, Blood 8.9 mg/dL (8.5-10.1); Chloride, Blood 111 mmol/L (98-108); Creatinine, Blood 0.92 mg/dL (0.60-1.20); Glomerular Filtration Rate >60 (60-); Glucose, Blood 156 mg/dL (70-99); Potassium, Blood 3.9 mmol/L (3.5-5.5); Sodium, Blood 142 mmol/L (136-145)
--- NOTE | 2021-04-06 04:17 | NUR ---
SHIFT SUMMARY PT ADMITTED FOR PANCREATITIS. C/O NAUSEA THROUGHOUT SHIFT. PT STATES PAIN IS BETTER TODAY. MEDICATED ONCE FOR PAIN DURING THIS SHIFT. AAOX4. VS STABLE. NO SIGNIFICANT CHANGES DURING THIS SHIFT.
[2021-04-06 04:41] LABS: BASOPHILS ABSOLUTE AUTO 0.05 K/mm3 (0.00-0.23); BASOPHILS PERCENT AUTO 0 % (0-2); EOSINOPHILS ABSOLUTE AUTO 0.26 K/mm3 (0.00-0.68); EOSINOPHILS PERCENT AUTO 2 % (0-6); Hematocrit 36.8 % (37.0-53.0); Hemoglobin 11.9 g/dL (13.5-17.5); IMMATURE GRAN ABSOLUTE AUTO 0.03 K/mm3 (0.00-0.10); IMMATURE GRAN PERCENT AUTO 0 % (0-1); LYMPHOCYTES ABSOLUTE AUTO 1.82 K/mm3 (0.84-5.20); LYMPHOCYTES PERCENT AUTO 15 % (21-46); MONOCYTES ABSOLUTE AUTO 1.27 K/mm3 (0.16-1.47); MONOCYTES PERCENT AUTO 11 % (4-13); Mean Corpuscular HGB 28.7 pg (26.0-34.0); Mean Corpuscular HGB Conc 32.3 g/dL (31.5-36.5); Mean Corpuscular Volume 89 fL (80-100); NEUTROPHILS ABSOLUTE AUTO 8.45 K/mm3 (1.96-9.15); NEUTROPHILS PERCENT AUTO 71 % (41-73); Platelet Count 181 K/mm3 (150-400); RDW Coefficient Variation 13.6 % (11.7-14.2); RDW Standard Deviation 44.2 fL (35.1-46.3); Red Blood Cell Count 4.14 M/mm3 (4.30-5.90); White Blood Cell Count 11.88 K/mm3 (4.00-11.30)
[2021-04-06 05:07] LABS: Alanine Aminotransfer (ALT/SGP 20 U/L (12-78); Albumin, Blood 3.1 g/dL (3.4-5.0); Alk Phos 26 U/L (50-136); Anion Gap 6 mmol/L (6-16); Aspartate Aminotrans (AST/SGOT 13 U/L (12-37); Bilirubin, Total 1.1 mg/dL (0.1-1.0); Blood Urea Nitrogen 18 mg/dL (8-24); Bun/Creatinine Ratio 19.8 (12.0-20.0); CO2, Blood 26 mmol/L (21-32); Calcium, Blood 8.6 mg/dL (8.5-10.1); Chloride, Blood 110 mmol/L (98-108); Creatinine, Blood 0.91 mg/dL (0.60-1.20); Globulin, Blood 3.2 g/dL (2.2-4.0); Glomerular Filtration Rate >60 (60-); Glucose, Blood 140 mg/dL (70-99); Potassium, Blood 3.8 mmol/L (3.5-5.5); Sodium, Blood 142 mmol/L (136-145); Total Protein, Blood 6.3 g/dL (6.4-8.2)
--- NOTE | 2021-04-06 09:47 | NUR ---
dr in to visit, said to hold pt at clear and then advance for dinner if he continues to improve, warned to minimize fat due to gallbladder, encouraged pt to walk as much as possible
--- NOTE | 2021-04-06 18:23 | NUR ---
move up to full liquid diet, has had no complaints of abdmn pain, walked [facility] to [facility] to meet with family, had walked there in the am to show the nurse he could do it and to verify if security would allow a meeting, medicated as prescribed, call light in reach, bed in low position, fluids infusing with no s/s of infection or infiltration, looking forward to going home soon
--- NOTE | 2021-04-07 00:16 | NUR ---
PT C/O STABBING CHEST PAIN, PAIN MEDICATION GIVEN. VITAL SIGNS 127/62, 95% HR 56. VEHICLE SALES PROFESSIONAL PHYSICAIN CALLED. ORDERS GIVEN FOR NITRO, TROPONIN, AND EKG. EKG READ SINUS BRADYCARDIA WITH RIGHT BUNDLE BRANCH. SAME COMPARED TO PREVIOUS EKG ON THE 04/04/21. MD UPDATED. NO NEW ORDERS GIVEN.
--- NOTE | 2021-04-07 04:28 | NUR ---
SHIFT SUMMARY DURING THIS SHIFT, PT C/O STABBING PAIN TO CHEST. FENTANYL GIVEN. PT STATES " THAT TOOK ALL THE PAIN AWAY". SUBLINGAL NITRO GIVEN, TROPONIN WAS NEGATIVE. EKG SAME COMPARED TO PREVIOUS ON THE 13. MD UPDATED. NO NEW ORDERS GIVEN. VS STABLE. PT AAOx4. ABLE TO MAKE NEEDS KNOWN. NO OTHER COMPLAINTS.
[2021-04-07 04:33] LABS: BASOPHILS ABSOLUTE AUTO 0.06 K/mm3 (0.00-0.23); BASOPHILS PERCENT AUTO 1 % (0-2); EOSINOPHILS ABSOLUTE AUTO 0.39 K/mm3 (0.00-0.68); EOSINOPHILS PERCENT AUTO 3 % (0-6); Hematocrit 35.2 % (37.0-53.0); Hemoglobin 11.5 g/dL (13.5-17.5); IMMATURE GRAN ABSOLUTE AUTO 0.05 K/mm3 (0.00-0.10); IMMATURE GRAN PERCENT AUTO 0 % (0-1); LYMPHOCYTES ABSOLUTE AUTO 2.13 K/mm3 (0.84-5.20); LYMPHOCYTES PERCENT AUTO 19 % (21-46); MONOCYTES ABSOLUTE AUTO 1.42 K/mm3 (0.16-1.47); MONOCYTES PERCENT AUTO 12 % (4-13); Mean Corpuscular HGB 29.2 pg (26.0-34.0); Mean Corpuscular HGB Conc 32.7 g/dL (31.5-36.5); Mean Corpuscular Volume 89 fL (80-100); Mean Platelet Volume 11.8 fL (9.1-12.4); NEUTROPHILS ABSOLUTE AUTO 7.42 K/mm3 (1.96-9.15); NEUTROPHILS PERCENT AUTO 65 % (41-73); Platelet Count 170 K/mm3 (150-400); RDW Coefficient Variation 13.6 % (11.7-14.2); RDW Standard Deviation 44.7 fL (35.1-46.3); Red Blood Cell Count 3.94 M/mm3 (4.30-5.90); White Blood Cell Count 11.47 K/mm3 (4.00-11.30)
[2021-04-07 04:51] LABS: Alanine Aminotransfer (ALT/SGP 17 U/L (12-78); Alk Phos 27 U/L (50-136); Anion Gap 3 mmol/L (6-16); Aspartate Aminotrans (AST/SGOT 11 U/L (12-37); Bilirubin, Total 1.3 mg/dL (0.1-1.0); Blood Urea Nitrogen 17 mg/dL (8-24); Bun/Creatinine Ratio 18.2 (12.0-20.0); CO2, Blood 29 mmol/L (21-32); Calcium, Blood 8.6 mg/dL (8.5-10.1); Chloride, Blood 109 mmol/L (98-108); Creatinine, Blood 0.94 mg/dL (0.60-1.20); Globulin, Blood 3.1 g/dL (2.2-4.0); Glomerular Filtration Rate >60 (60-); Glucose, Blood 145 mg/dL (70-99); Potassium, Blood 3.6 mmol/L (3.5-5.5); Sodium, Blood 141 mmol/L (136-145); Total Protein, Blood 6.1 g/dL (6.4-8.2)
[2021-04-07] MEDS ORDERED: ONDA4ODT MM (10:07)
--- NOTE | 2021-04-07 10:40 | NUR ---
DISCHARGED HOME WITH FAMILY, TOOK CPAP HOME, REMOVED IV WITH NO PROBLEMS, DISCUSSED DISCHARGE INSTRUCTIONS AND MEDICATIONS, STAFF ASSISTED PT IN WC TO [facility]
== END 2021-04-07 10:46 | disposition home or self-care (01) | DRG 439 ==
LOC: ER 00:26 → EDBEDREQ 04:28 → EDBEDREQTM 04:28 → MEDS 04:32
PROVIDERS: Emergency Medicine; Family Medicine; Internal Medicine; ADMIT Hospitalist
DX: K85.00 Idiopathic acute pancreatitis without necrosis or infection (principal); K86.2 Cyst of pancreas; R47.01 Aphasia; E78.5 Hyperlipidemia, unspecified; I10 Essential (primary) hypertension; Z96.652 Presence of left artificial knee joint; Z20.822 Contact with and (suspected) exposure to COVID-19; K82.4 Cholesterolosis of gallbladder; I25.10 Atherosclerotic heart disease of native coronary artery without angina pectoris; E66.9 Obesity, unspecified; N40.0 Benign prostatic hyperplasia without lower urinary tract symptoms; E11.9 Type 2 diabetes mellitus without complications; G47.33 Obstructive sleep apnea (adult) (pediatric); I25.2 Old myocardial infarction; Z95.5 Presence of coronary angioplasty implant and graft; Z87.442 Personal history of urinary calculi; Z88.8 Allergy status to other drugs, medicaments and biological substances; Z68.37 Body mass index [BMI] 37.0-37.9, adult; Z98.890 Other specified postprocedural states; Z79.82 Long term (current) use of aspirin; Z79.899 Other long term (current) drug therapy; Z79.4 Long term (current) use of insulin; Z87.891 Personal history of nicotine dependence
CPT/HCPCS: 36415; 71045; 74181; 76705; 80048; 80053; 80061; 82330; 82947; 83615; 83690; 83880; 84484; 85025; 93005; 93010; 94660; 94762; 96374; 96375; 99285-25; A9270; C9113; J1650; J1815; J2405; J3010; J7120; U0004

== ENCOUNTER 2021-04-18 12:13 | Inpatient (IN) | payer MEDICARE ==
[~2021-04-18] VITALS: Ht 180.3 cm; Wt 115.8 kg
[~2021-04-18 12:13] MED LIST changes: +ASPI325 PO; +Coq-1030 MG PO; +JARDIANCE25 MG PO; +MULVITA PO; +ONDA4ODT MM; +SILD50TA PO
[2021-04-18 13:58] LABS: BASOPHILS ABSOLUTE AUTO 0.07 K/mm3 (0.00-0.23); BASOPHILS PERCENT AUTO 1 % (0-2); EOSINOPHILS ABSOLUTE AUTO 0.43 K/mm3 (0.00-0.68); EOSINOPHILS PERCENT AUTO 3 % (0-6); Hematocrit 40.3 % (37.0-53.0); Hemoglobin 13.2 g/dL (13.5-17.5); IMMATURE GRAN ABSOLUTE AUTO 0.08 K/mm3 (0.00-0.10); IMMATURE GRAN PERCENT AUTO 1 % (0-1); LYMPHOCYTES ABSOLUTE AUTO 1.37 K/mm3 (0.84-5.20); LYMPHOCYTES PERCENT AUTO 10 % (21-46); MONOCYTES ABSOLUTE AUTO 0.65 K/mm3 (0.16-1.47); MONOCYTES PERCENT AUTO 5 % (4-13); Mean Corpuscular HGB 28.8 pg (26.0-34.0); Mean Corpuscular HGB Conc 32.8 g/dL (31.5-36.5); Mean Corpuscular Volume 88 fL (80-100); Mean Platelet Volume 10.8 fL (9.1-12.4); NEUTROPHILS ABSOLUTE AUTO 10.91 K/mm3 (1.96-9.15); NEUTROPHILS PERCENT AUTO 81 % (41-73); Platelet Count 314 K/mm3 (150-400); RDW Coefficient Variation 13.2 % (11.7-14.2); RDW Standard Deviation 42.2 fL (35.1-46.3); Red Blood Cell Count 4.58 M/mm3 (4.30-5.90); White Blood Cell Count 13.51 K/mm3 (4.00-11.30)
[2021-04-18 14:19] LABS: Alanine Aminotransfer (ALT/SGP 21 U/L (12-78); Albumin, Blood 3.2 g/dL (3.4-5.0); Albumin/Globulin Ratio 0.8 (0.8-1.8); Alk Phos 36 U/L (50-136); Anion Gap 4 mmol/L (6-16); Aspartate Aminotrans (AST/SGOT 19 U/L (12-37); Bilirubin, Total 0.3 mg/dL (0.1-1.0); Blood Urea Nitrogen 20 mg/dL (8-24); Bun/Creatinine Ratio 20.9 (12.0-20.0); CO2, Blood 25 mmol/L (21-32); Calcium, Blood 9.2 mg/dL (8.5-10.1); Chloride, Blood 112 mmol/L (98-108); Creatinine, Blood 0.96 mg/dL (0.60-1.20); Globulin, Blood 4.2 g/dL (2.2-4.0); Glomerular Filtration Rate >60 (60-); Glucose, Blood 146 mg/dL (70-99); Potassium, Blood 4.1 mmol/L (3.5-5.5); Sodium, Blood 141 mmol/L (136-145); Total Protein, Blood 7.4 g/dL (6.4-8.2)
[2021-04-18] MEDS ORDERED: ATOR40TA PO (14:51)
--- NOTE | 2021-04-18 18:44 | NUR ---
SHIFT SUMMARY PATIENT ADMIITED TO UNIT FROM ED WITH ABDOMINAL PAIN. PATIENT WAS RECENTLY HOSPITALIZED WITH PANCREATITS [id number] PRIOR AND D/C. PATIENT AOX4 UP INDEPENDENT; VSS; PATIENT REPORTS PAIN RATED 8/10, PRN 50MCG FENTANYL GIVEN WITH RELIEF. IVF INFUSING; HOURLY ROUNDING MAINTAINED
[2021-04-19 04:27] LABS: BASOPHILS ABSOLUTE AUTO 0.07 K/mm3 (0.00-0.23); BASOPHILS PERCENT AUTO 1 % (0-2); EOSINOPHILS ABSOLUTE AUTO 0.44 K/mm3 (0.00-0.68); EOSINOPHILS PERCENT AUTO 4 % (0-6); Hematocrit 39.4 % (37.0-53.0); Hemoglobin 12.9 g/dL (13.5-17.5); IMMATURE GRAN ABSOLUTE AUTO 0.06 K/mm3 (0.00-0.10); IMMATURE GRAN PERCENT AUTO 1 % (0-1); LYMPHOCYTES PERCENT AUTO 17 % (21-46); MONOCYTES ABSOLUTE AUTO 0.86 K/mm3 (0.16-1.47); MONOCYTES PERCENT AUTO 7 % (4-13); Mean Corpuscular HGB 28.5 pg (26.0-34.0); Mean Corpuscular HGB Conc 32.7 g/dL (31.5-36.5); Mean Corpuscular Volume 87 fL (80-100); Mean Platelet Volume 10.6 fL (9.1-12.4); NEUTROPHILS ABSOLUTE AUTO 8.52 K/mm3 (1.96-9.15); NEUTROPHILS PERCENT AUTO 71 % (41-73); Platelet Count 300 K/mm3 (150-400); RDW Coefficient Variation 13.2 % (11.7-14.2); RDW Standard Deviation 42.3 fL (35.1-46.3); Red Blood Cell Count 4.52 M/mm3 (4.30-5.90); White Blood Cell Count 11.95 K/mm3 (4.00-11.30)
[2021-04-19 05:15] LABS: Alanine Aminotransfer (ALT/SGP 18 U/L (12-78); Albumin/Globulin Ratio 0.8 (0.8-1.8); Alk Phos 33 U/L (50-136); Anion Gap 7 mmol/L (6-16); Aspartate Aminotrans (AST/SGOT 11 U/L (12-37); Bilirubin, Total 0.9 mg/dL (0.1-1.0); Blood Urea Nitrogen 15 mg/dL (8-24); Bun/Creatinine Ratio 18.9 (12.0-20.0); CO2, Blood 22 mmol/L (21-32); Calcium, Blood 8.9 mg/dL (8.5-10.1); Chloride, Blood 112 mmol/L (98-108); Creatinine, Blood 0.79 mg/dL (0.60-1.20); Glomerular Filtration Rate >60 (60-); Glucose, Blood 94 mg/dL (70-99); Sodium, Blood 141 mmol/L (136-145)
--- NOTE | 2021-04-19 05:16 | NUR ---
SHIFT SUMMARY PT A&O X4 AND IN PLEASENT MOOD T/O SHIFT. PT CALL LIGHT W/IN REACH, AND PT UTILIZING APPROPRIATLY. PT COMPLAINS OF PAIN AND NAUSEA T/O SHIFT, MEDICATED PER EMAR. DROPPED OF CPAP MACHINE THAT IS SET UP @ BEDSIDE.
--- NOTE | 2021-04-19 11:32 | NUR ---
ADMIT: 04/18/21 DISCHARGE: DX: pancreatitis CC: jasmine CARLTON CALL: RESIDENCE: Home with spouse EMERGENCY CONTACT: Letty Humphries, Spouse / Partner, Ladarius Humphries, Child, DX: Cerebrovascular disease, CAD, DM, HUSSEIN DME: DM supplies CCM: none HOME HEALTH: none SUMMARY: Admit: 04/18/21 04/19/21- surgery has consulted on pt and plan is for lap neri once pancreatitis has resolved. Plan is to stay through the weekend. -kody
--- NOTE | 2021-04-19 13:06 | NUR ---
1130 PT BLOOD SUGAR 89 PER MAXIMILIANO VANESSA. RESULTS DID NOT TRANSFER VIA METER TO CHART
--- NOTE | 2021-04-19 17:42 | NUR ---
PT HAS DENIED NEED FOR PAIN MEDS THIS SHIFT. TOLERATING FULL LIQUIDS WITHOUT NAUSEA. AMBULATING IN CRAFT STEADY ON FEET.
[2021-04-20 02:40] LABS: BASOPHILS ABSOLUTE AUTO 0.04 K/mm3 (0.00-0.23); BASOPHILS PERCENT AUTO 1 % (0-2); EOSINOPHILS ABSOLUTE AUTO 0.57 K/mm3 (0.00-0.68); EOSINOPHILS PERCENT AUTO 7 % (0-6); Hematocrit 36.8 % (37.0-53.0); Hemoglobin 12.1 g/dL (13.5-17.5); IMMATURE GRAN ABSOLUTE AUTO 0.03 K/mm3 (0.00-0.10); IMMATURE GRAN PERCENT AUTO 0 % (0-1); LYMPHOCYTES ABSOLUTE AUTO 2.43 K/mm3 (0.84-5.20); LYMPHOCYTES PERCENT AUTO 29 % (21-46); MONOCYTES ABSOLUTE AUTO 0.85 K/mm3 (0.16-1.47); MONOCYTES PERCENT AUTO 10 % (4-13); Mean Corpuscular HGB 28.9 pg (26.0-34.0); Mean Corpuscular HGB Conc 32.9 g/dL (31.5-36.5); Mean Corpuscular Volume 88 fL (80-100); Mean Platelet Volume 10.4 fL (9.1-12.4); NEUTROPHILS ABSOLUTE AUTO 4.58 K/mm3 (1.96-9.15); NEUTROPHILS PERCENT AUTO 54 % (41-73); Platelet Count 283 K/mm3 (150-400); RDW Coefficient Variation 13.2 % (11.7-14.2); RDW Standard Deviation 42.8 fL (35.1-46.3); Red Blood Cell Count 4.18 M/mm3 (4.30-5.90)
[2021-04-20 02:59] LABS: Alanine Aminotransfer (ALT/SGP 15 U/L (12-78); Albumin, Blood 2.9 g/dL (3.4-5.0); Albumin/Globulin Ratio 0.7 (0.8-1.8); Alk Phos 33 U/L (50-136); Anion Gap 4 mmol/L (6-16); Aspartate Aminotrans (AST/SGOT 9 U/L (12-37); Bilirubin, Total 0.9 mg/dL (0.1-1.0); Blood Urea Nitrogen 15 mg/dL (8-24); CO2, Blood 27 mmol/L (21-32); Calcium, Blood 9.3 mg/dL (8.5-10.1); Chloride, Blood 109 mmol/L (98-108); Creatinine, Blood 0.94 mg/dL (0.60-1.20); Globulin, Blood 4.1 g/dL (2.2-4.0); Glomerular Filtration Rate >60 (60-); Glucose, Blood 111 mg/dL (70-99); Potassium, Blood 4.1 mmol/L (3.5-5.5); Sodium, Blood 140 mmol/L (136-145)
--- NOTE | 2021-04-20 04:29 | NUR ---
SHIFT SUMMARY NO ACUTE CHANGES OVERNIGHT. PT REPORTS PAIN TO BE VERY MINIMAL. DENIES ANY PAIN MEDICATION. PT TOLERATING FULL LIQ DIET. DENIES NAUSEA AND VOMITING. LIPASE APPEARS IMPROVED THIS MORNING FROM [phone] YESTERDAY TO [phone] TODAY. PT IS INDEPENDENT IN ROOM. VOIDING WITHOUT ANY ISSUE. AOX4. CALLS APPROPRIATELY. PT HX HUSSEIN, WEARS HIS HOME CPAP AT NIGHT. SLEPT GOOD OVERNIGHT. SALINE LOCK. CALL LIGHT WITHIN REACH. WILL PROVIDE REPORT TO ONCOMING NURSE.
[2021-04-20 11:26] LABS: SARS-Cov-2 (COVID-19) PCR, MMC NEGATIVE (NEGATIVE)
--- NOTE | 2021-04-20 13:47 | NUR ---
04/20/21 0637 Moises Quintero PT ALSO RECIEVED 1 ADDITIONAL GRAM OF ANCEF FROM DR LE DURING SURGERY. TOTAL 3 GRAMS OF ANCEF IVPB.
--- NOTE | 2021-04-20 15:34 | NUR ---
PT ARRIVED TO THE ROOM FROM PACU. HE IS DROWSY BUT ORIENTED. HE REPORTS MILD ABD PAIN. LAP INCISIONS X4 PRESENT WITH STERI STRIPS IN TACT, SCANT BLOODY DRAINAGE. PT REPORTS SOME NAUSEA BUT STATES TOLERABLE.
--- NOTE | 2021-04-20 17:22 | NUR ---
SHIFT SUMMARY PT HAD A LAP YAS TODAY WITH DR. GONSALVES. PT HAS REPORTED PAIN AND NAUSEA HAVE BEEN TOLERABLE POST OP. PT HAS BEEN OOB TO USE THE BATHROOM. VSS. WILL MONITOR UNTIL REPORT TO ESSENCE TINAJERO.
--- NOTE | 2021-04-21 07:34 | NUR ---
SUMMARY PT INDEPENDANTLY AMBULATING.TOLERATING FLUIDS AND VOIDING.PT HOPING FOR DISCHARGE TODAY.
[2021-04-21 10:10] LABS: BASOPHILS ABSOLUTE AUTO 0.04 K/mm3 (0.00-0.23); BASOPHILS PERCENT AUTO 0 % (0-2); EOSINOPHILS ABSOLUTE AUTO 0.05 K/mm3 (0.00-0.68); EOSINOPHILS PERCENT AUTO 1 % (0-6); Hematocrit 39.4 % (37.0-53.0); Hemoglobin 12.8 g/dL (13.5-17.5); IMMATURE GRAN ABSOLUTE AUTO 0.05 K/mm3 (0.00-0.10); IMMATURE GRAN PERCENT AUTO 1 % (0-1); LYMPHOCYTES ABSOLUTE AUTO 1.78 K/mm3 (0.84-5.20); LYMPHOCYTES PERCENT AUTO 18 % (21-46); MONOCYTES ABSOLUTE AUTO 0.87 K/mm3 (0.16-1.47); MONOCYTES PERCENT AUTO 9 % (4-13); Mean Corpuscular HGB 28.1 pg (26.0-34.0); Mean Corpuscular HGB Conc 32.5 g/dL (31.5-36.5); Mean Corpuscular Volume 86 fL (80-100); Mean Platelet Volume 10.7 fL (9.1-12.4); NEUTROPHILS ABSOLUTE AUTO 7.15 K/mm3 (1.96-9.15); NEUTROPHILS PERCENT AUTO 72 % (41-73); Platelet Count 323 K/mm3 (150-400); RDW Coefficient Variation 13.2 % (11.7-14.2); RDW Standard Deviation 40.8 fL (35.1-46.3); Red Blood Cell Count 4.56 M/mm3 (4.30-5.90); White Blood Cell Count 9.94 K/mm3 (4.00-11.30)
[2021-04-21 10:29] LABS: Anion Gap 7 mmol/L (6-16); Blood Urea Nitrogen 23 mg/dL (8-24); Bun/Creatinine Ratio 21.9 (12.0-20.0); CO2, Blood 24 mmol/L (21-32); Calcium, Blood 9.4 mg/dL (8.5-10.1); Chloride, Blood 108 mmol/L (98-108); Creatinine, Blood 1.05 mg/dL (0.60-1.20); Glomerular Filtration Rate >60 (60-); Glucose, Blood 182 mg/dL (70-99); Potassium, Blood 4.1 mmol/L (3.5-5.5); Sodium, Blood 139 mmol/L (136-145)
--- NOTE | 2021-04-21 12:29 | NUR ---
DISCHARGE INSTRUCTIONS GIVEN TO PATIENT AT THIS TIME, HE VERBALIZED UNDERSTANDING. NO SIGNS OR SYMPTOMS ACUTE DISTRESS NOTED. NO COMPLAINTS OF PAIN VOICED. NO COMPLAINTS OF NAUSEA. IS PICKING HIM UP. PATIENT AMBULATED TO DISCHARGE.
== END 2021-04-21 12:28 | disposition home or self-care (01) | DRG 419 ==
LOC: ER 12:13 → SURS 16:04
PROVIDERS: Internal Medicine; Physician Assistant; Surgery; ADMIT Family Medicine
PROC: BF522Z0 Other Imaging of Gallbladder using Fluorescing Agent, Intraoperative (ICD-10-PCS; 2021-04-20)
PROC: BF5 Imaging, Hepatobiliary System and Pancreas, Other Imaging (ICD-10-PCS; 2021-04-20)
PROC: 0FT44ZZ Resection of Gallbladder, Percutaneous Endoscopic Approach (ICD-10-PCS; principal; 2021-04-20 13:00)
DX: K85.90 Acute pancreatitis without necrosis or infection, unspecified (principal); Z20.822 Contact with and (suspected) exposure to COVID-19; I10 Essential (primary) hypertension; E78.5 Hyperlipidemia, unspecified; E11.9 Type 2 diabetes mellitus without complications; I25.10 Atherosclerotic heart disease of native coronary artery without angina pectoris; N40.0 Benign prostatic hyperplasia without lower urinary tract symptoms; G47.33 Obstructive sleep apnea (adult) (pediatric); Z96.652 Presence of left artificial knee joint; Z99.89 Dependence on other enabling machines and devices; Z95.5 Presence of coronary angioplasty implant and graft; Z87.442 Personal history of urinary calculi; Z88.8 Allergy status to other drugs, medicaments and biological substances; Z87.891 Personal history of nicotine dependence; Z79.4 Long term (current) use of insulin; Z79.899 Other long term (current) drug therapy; I25.2 Old myocardial infarction
CPT/HCPCS: 36415; 71045; 76705; 80048; 80053; 82947; 83690; 84484; 85025; 88304; 93005; 93010; 96374; 96375; 99285-25; A9270; C1729; C9113; J0690; J1100; J1650; J1815; J1885; J2250; J2270; J2405; J2704; J2765; J3010; J7030; U0004

== ENCOUNTER 2021-05-26 13:22 | Emergency (ER) | payer MEDICARE ==
[~2021-05-26] VITALS: Ht 180.3 cm; Wt 119.8 kg
== END 2021-05-26 15:01 | disposition home or self-care (01) ==
LOC: ER 13:22
DX: U07.1 COVID-19 (principal); I25.2 Old myocardial infarction; Z79.899 Other long term (current) drug therapy
CPT/HCPCS: 99282

== ENCOUNTER → 2021-05-26 | Outpatient (CLI) | payer MEDICARE ==
[~2021-05-26] MED LIST changes: +ATOR40TA PO
[2021-05-26 12:02] LABS: BASOPHILS ABSOLUTE AUTO 0.05 K/mm3 (0.00-0.23); BASOPHILS PERCENT AUTO 1 % (0-2); EOSINOPHILS ABSOLUTE AUTO 0.64 K/mm3 (0.00-0.68); EOSINOPHILS PERCENT AUTO 12 % (0-6); Hematocrit 43.9 % (37.0-53.0); IMMATURE GRAN ABSOLUTE AUTO 0.01 K/mm3 (0.00-0.10); IMMATURE GRAN PERCENT AUTO 0 % (0-1); LYMPHOCYTES ABSOLUTE AUTO 2.11 K/mm3 (0.84-5.20); LYMPHOCYTES PERCENT AUTO 38 % (21-46); MONOCYTES ABSOLUTE AUTO 0.53 K/mm3 (0.16-1.47); MONOCYTES PERCENT AUTO 10 % (4-13); Mean Corpuscular HGB 28.2 pg (26.0-34.0); Mean Corpuscular HGB Conc 31.9 g/dL (31.5-36.5); Mean Corpuscular Volume 88 fL (80-100); Mean Platelet Volume 10.9 fL (9.1-12.4); NEUTROPHILS ABSOLUTE AUTO 2.22 K/mm3 (1.96-9.15); NEUTROPHILS PERCENT AUTO 40 % (41-73); Platelet Count 222 K/mm3 (150-400); Red Blood Cell Count 4.97 M/mm3 (4.30-5.90); White Blood Cell Count 5.56 K/mm3 (4.00-11.30)
[2021-05-26 12:09] LABS: Alanine Aminotransfer (ALT/SGP 31 U/L (12-78); Albumin/Globulin Ratio 1.1 (0.8-1.8); Alk Phos 40 U/L (40-126); Anion Gap 7 mmol/L (6-16); Aspartate Aminotrans (AST/SGOT 14 U/L (12-37); Bilirubin, Total 0.5 mg/dL (0.1-1.0); Blood Urea Nitrogen 20 mg/dL (8-24); Bun/Creatinine Ratio 16.9 (12.0-20.0); CO2, Blood 31 mmol/L (21-32); Calcium, Blood 9.5 mg/dL (8.5-10.1); Chloride, Blood 107 mmol/L (98-108); Creatinine, Blood 1.18 mg/dL (0.60-1.20); Globulin, Blood 3.8 g/dL (2.2-4.0); Glomerular Filtration Rate >60 (60-); Glucose, Blood 171 mg/dL (70-99); Potassium, Blood 4.9 mmol/L (3.5-5.5); Sodium, Blood 145 mmol/L (136-145); Total Protein, Blood 7.8 g/dL (6.4-8.2)
== END | disposition home or self-care (01) ==
LOC: LAB SHORT 11:56 → LAB 11:56
PROVIDERS: General Practice
DX: U07.1 COVID-19 (principal)
CPT/HCPCS: 80053; 85025; 85379

== ENCOUNTER 2021-06-12 16:07 | Emergency (ER) | payer MEDICARE ==
[~2021-06-12] VITALS: Ht 177.8 cm; Wt 117.9 kg
[2021-06-12 16:39] LABS: BASOPHILS ABSOLUTE AUTO 0.05 K/mm3 (0.00-0.23); BASOPHILS PERCENT AUTO 0 % (0-2); EOSINOPHILS ABSOLUTE AUTO 0.01 K/mm3 (0.00-0.68); EOSINOPHILS PERCENT AUTO 0 % (0-6); Hematocrit 44.7 % (37.0-53.0); Hemoglobin 14.7 g/dL (13.5-17.5); IMMATURE GRAN ABSOLUTE AUTO 0.16 K/mm3 (0.00-0.10); IMMATURE GRAN PERCENT AUTO 1 % (0-1); LYMPHOCYTES ABSOLUTE AUTO 1.12 K/mm3 (0.84-5.20); LYMPHOCYTES PERCENT AUTO 6 % (21-46); MONOCYTES ABSOLUTE AUTO 1.33 K/mm3 (0.16-1.47); MONOCYTES PERCENT AUTO 7 % (4-13); Mean Corpuscular HGB 28.2 pg (26.0-34.0); Mean Corpuscular HGB Conc 32.9 g/dL (31.5-36.5); Mean Corpuscular Volume 86 fL (80-100); Mean Platelet Volume 11.2 fL (9.1-12.4); NEUTROPHILS ABSOLUTE AUTO 17.11 K/mm3 (1.96-9.15); NEUTROPHILS PERCENT AUTO 86 % (41-73); Platelet Count 232 K/mm3 (150-400); RDW Coefficient Variation 14.6 % (11.7-14.2); RDW Standard Deviation 46.5 fL (35.1-46.3); Red Blood Cell Count 5.21 M/mm3 (4.30-5.90); White Blood Cell Count 19.78 K/mm3 (4.00-11.30)
[2021-06-12 16:40] LABS: Source, Urine Clean Catch
[2021-06-12 16:44] LABS: Appearance, Urine Clear (Clear); Bilirubin, Urine Neg (Neg); Blood, Urine 5+ (Neg); Color, Urine Yellow (P-Yellow); Glucose Qualitative, Urine 4+ (Neg); Ketones, Urine 2+ (Neg); Leukocyte Esterase, Urine Neg (Neg); Nitrite, Urine Neg (Neg); Protein, Urine 2+ (Neg); Specific Gravity, Urine 1.015 (1.003-1.022); Urobilinogen, Urine NORM (Normal)
[2021-06-12 16:54] LABS: Bacteria Few /hpf; Red Blood Cells, Urine 50-100 /hpf (0-2); Squamous Epithelial Cells Rare /hpf (Few)
[2021-06-12 16:57] LABS: Alanine Aminotransfer (ALT/SGP 23 U/L (12-78); Albumin, Blood 3.3 g/dL (3.4-5.0); Albumin/Globulin Ratio 0.7 (0.8-1.8); Alk Phos 46 U/L (50-136); Anion Gap 9 mmol/L (6-16); Aspartate Aminotrans (AST/SGOT 16 U/L (12-37); Bilirubin, Total 1.4 mg/dL (0.1-1.0); Blood Urea Nitrogen 26 mg/dL (8-24); CO2, Blood 20 mmol/L (21-32); Calcium, Blood 9.9 mg/dL (8.5-10.1); Chloride, Blood 107 mmol/L (98-108); Creatinine, Blood 1.13 mg/dL (0.60-1.20); Globulin, Blood 4.6 g/dL (2.2-4.0); Glomerular Filtration Rate >60 (60-); Glucose, Blood 143 mg/dL (70-99); Potassium, Blood 4.2 mmol/L (3.5-5.5); Sodium, Blood 136 mmol/L (136-145); Total Protein, Blood 7.9 g/dL (6.4-8.2)
[2021-06-12] MEDS ORDERED: CEFD300 PO (19:22)
== END 2021-06-12 19:37 | disposition home or self-care (01) ==
LOC: ER 16:07
PROVIDERS: Physician Assistant
DX: N10 Acute pyelonephritis (principal); I25.2 Old myocardial infarction; Z88.8 Allergy status to other drugs, medicaments and biological substances; Z79.84 Long term (current) use of oral hypoglycemic drugs; Z79.899 Other long term (current) drug therapy; Z79.4 Long term (current) use of insulin; Z79.82 Long term (current) use of aspirin
CPT/HCPCS: 36415; 74177; 80053; 81001; 83605; 85025; A9270; J0696; J0780; J3010; J7030; Q9967

== ENCOUNTER → 2021-06-30 | Outpatient (CLI) | payer MEDICARE ==
[~2021-06-30] MED LIST changes: +CEFD300 PO
== END | disposition home or self-care (01) ==
LOC: LAB SHORT 10:46 → LAB FUT 06-25 12:00
DX: N20.0 Calculus of kidney (principal)
CPT/HCPCS: 81050

== ENCOUNTER 2023-01-24 18:31 | Emergency (ER) | payer MEDICARE ==
[~2023-01-24] VITALS: Ht 180.3 cm; Wt 114.3 kg
[2023-01-24 19:10] LABS: BASOPHILS ABSOLUTE AUTO 0.09 K/mm3 (0.00-0.23); BASOPHILS PERCENT AUTO 1 % (0-2); EOSINOPHILS ABSOLUTE AUTO 0.65 K/mm3 (0.00-0.68); EOSINOPHILS PERCENT AUTO 8 % (0-6); Hematocrit 43.4 % (37.0-53.0); Hemoglobin 14.4 g/dL (13.5-17.5); IMMATURE GRAN ABSOLUTE AUTO 0.02 K/mm3 (0.00-0.10); IMMATURE GRAN PERCENT AUTO 0 % (0-1); LYMPHOCYTES ABSOLUTE AUTO 2.52 K/mm3 (0.84-5.20); LYMPHOCYTES PERCENT AUTO 32 % (21-46); MONOCYTES ABSOLUTE AUTO 0.78 K/mm3 (0.16-1.47); MONOCYTES PERCENT AUTO 10 % (4-13); Mean Corpuscular HGB 29.3 pg (26.0-34.0); Mean Corpuscular HGB Conc 33.2 g/dL (31.5-36.5); Mean Corpuscular Volume 88 fL (80-100); NEUTROPHILS ABSOLUTE AUTO 3.77 K/mm3 (1.96-9.15); NEUTROPHILS PERCENT AUTO 48 % (41-73); Platelet Count 186 K/mm3 (150-400); RDW Coefficient Variation 13.6 % (11.7-14.2); RDW Standard Deviation 44.2 fL (35.1-46.3); Red Blood Cell Count 4.91 M/mm3 (4.30-5.90); White Blood Cell Count 7.83 K/mm3 (4.00-11.30)
[2023-01-24 19:26] LABS: Albumin, Blood 3.8 g/dL (3.4-5.0); Albumin/Globulin Ratio 1.1 (0.8-1.8); Bilirubin, Total 1.3 mg/dL (0.1-1.0); Bun/Creatinine Ratio 23.3 (12.0-20.0); Calcium, Blood 9.5 mg/dL (8.5-10.1); Creatinine, Blood 0.95 mg/dL (0.60-1.20); Globulin, Blood 3.6 g/dL (2.2-4.0); Total Protein, Blood 7.4 g/dL (6.4-8.2)
[2023-01-24 21:55] VITALS: BP 148/78
== END 2023-01-24 21:56 | disposition home or self-care (01) ==
LOC: ER 18:31
PROVIDERS: Emergency Medicine
DX: R07.89 Other chest pain (principal); I25.10 Atherosclerotic heart disease of native coronary artery without angina pectoris; E11.9 Type 2 diabetes mellitus without complications; I10 Essential (primary) hypertension; Z88.8 Allergy status to other drugs, medicaments and biological substances; Z79.4 Long term (current) use of insulin; Z79.899 Other long term (current) drug therapy
CPT/HCPCS: 71045; 80053; 84484; 85025; 93005; 93010; 96374; 99285-25; J2405

== ENCOUNTER → 2023-07-24 | Outpatient (CLI) | payer MEDICARE ==
[2023-07-24 15:43] LABS: Microalb/Creat Ratio UR, Rand Unable to Calculate mg/g (0.000-30.000); Microalbumin, Random Urine <5.000 mg/L (0.000-20.000)
== END | disposition home or self-care (01) ==
LOC: LAB SHORT 11:32 → LAB 11:32
PROVIDERS: Family Medicine
DX: E11.65 Type 2 diabetes mellitus with hyperglycemia (principal)
CPT/HCPCS: 82043; 82570